=== PATIENT | female | born 2000 | race African-American/Black ===

== ENCOUNTER 2023-11-08 02:50 | Inpatient (IN) ==
[2023-11-08] MEDS ORDERED: Calcium Gluconate 1 GM/10 ML VIAL (in Pyxis) IV PUSH PRN (03:14)
[2023-11-08] MEDS: Labetalol IV 5 MG/ML 20 ml VIAL IV PUSH ONE ×2 (03:24→04:04)
[2023-11-08] MEDS ORDERED: Lidocaine 1% VIAL 10 MG/ML 30 ML VIAL INJ PRN (03:34)
[2023-11-08 04:15] LABS: Hematocrit 34.3 % (35-45); Hemoglobin 11.2 g/dL (11.5-14.3); Mean Corpuscular Hemoglobin 26.5 pg (27-33); Mean Corpuscular Hgb Conc 32.8 g/dL (31-36); Mean Corpuscular Volume 80.7 fL (80-97); Mean Platelet Volume 8.9 fL (7.5-11.2); Platelet Count 284 10^3/uL (150-450); Red Blood Count 4.25 10^6/uL (3.63-4.92); Red Cell Distribution Width 16.8 % (12-17); White Blood Count 14.8 10^3/uL (3.8-11.8)
[2023-11-08] MEDS: Magnesium Sulfate OB PREMIX 4 GM/100 ML BAG IV ONE (04:33)
[2023-11-08] MEDS: Lactated Ringers 1000 ml BAG 1,000 ML IV SCH (04:34)
[2023-11-08 04:46] LABS: Albumin 3.6 g/dL (3.2-5.2); Albumin/Globulin Ratio 1.1 (1-3); Calcium 9.3 mg/dL (8.6-10.3); Creatinine, Serum 0.63 mg/dL (0.51-0.95); Globulin 3.3 g/dL (2-4); Potassium 4.1 mmol/L (3.5-5.0); Total Bilirubin 0.3 mg/dL (0.2-1.0); Total Protein 6.9 g/dL (6.4-8.9); eGFR CKD-EPI 126.2 (>60)
[2023-11-08] MEDS: Magnesium Sulfate OB PREMIX 40 GM/1,000 ML BAG IVPB SCH (04:55)
[2023-11-08] MEDS: Oxytocin in LR 20,000 MILLI.UNIT/1,000 ML BAG IV ONE (06:53)
[2023-11-08] MEDS ORDERED: Glycerin ADULT 2.4 gm SUPP PR PRN (07:40)
[2023-11-08] MEDS: Lactated Ringers 1000 ml BAG 1,000 ML IV ONE (07:52)
[2023-11-08] MEDS: Oxytocin in LR 20,000 MILLI.UNIT/1,000 ML BAG IV SCH (07:52)
[2023-11-08] MEDS: Buffered Lidocaine 1% SYRIN 1 ml INTRADERM ONE (07:52)
[2023-11-08] MEDS ORDERED: Lactated Ringers 1000 ml BAG 1,000 ML IV SCH (08:00)
[2023-11-08] MEDS: Witch Hazel PAD JAR TOPICAL PRN (08:16)
[2023-11-08] MEDS: Dibucaine 1% OINT 28.35 GM TUBE PR PRN (08:16)
[2023-11-08 10:27] LABS: Urine Creatinine Concentration 13.33 mg/dL (20.00-320.00); Urine TP Concentration < 5 mg/dL; Urine TP Creat Ratio 0.37 mg/mg
[2023-11-08 10:39] LABS: Urine Benzodiazepine Screen None Detected (None Detect); Urine Cannabinoids Screen None Detected (None Detect); Urine Opiates Screen None Detected (None Detect)
[2023-11-09 06:18] VITALS: BP 128/83
[2023-11-09 07:28] LABS: ABS Eosinophils 0.1 10^3/uL (0.0-0.5); ABS Lymphocytes 3.1 10^3/uL (1.0-4.8); ABS Neutrophils 9.9 10^3/uL (1.5-7.6); Eosinophil % 0.6 %; Hematocrit 22.8 % (35-45); Hemoglobin 7.8 g/dL (11.5-14.3); Lymphocyte % 21.7 %; Mean Corpuscular Hemoglobin 27.2 pg (27-33); Mean Corpuscular Hgb Conc 34.1 g/dL (31-36); Mean Corpuscular Volume 79.7 fL (80-97); Mean Platelet Volume 7.9 fL (7.5-11.2); Platelet Count 224 10^3/uL (150-450); Red Blood Count 2.86 10^6/uL (3.63-4.92); Red Cell Distribution Width 16.7 % (12-17); White Blood Count 14.1 10^3/uL (3.8-11.8)
== END 2023-11-09 13:55 | disposition home or self-care (01) | DRG 560 ==
LOC: MCHOBOUT 02:50 → MCHOB 03:34
PROVIDERS: ADMIT Obstetrics & Gynecology; ATTEND Obstetrics & Gynecology